=== PATIENT | male | born 1955 | race Caucasian/White ===

== ENCOUNTER → 2025-08-01 12:16 | Outpatient (REF) | payer MEDICARE, SELFPAY ==
[2025-08-01 13:28] LABS: ALT (SGPT) 25 U/L (0-50); AST (SGOT) 20 U/L (17-59); Albumin 4.6 g/dl (3.5-5.0); Alkaline Phosphatase 70 U/L (38-126); Blood Urea Nitrogen 12 mg/dl (9-20); Calcium 9.1 mg/dl (8.4-10.2); Carbon Dioxide 30 mmol/L (22-30); Chloride 102 mmol/L (98-107); Glucose 97 mg/dl (70-99); Potassium 4.4 mmol/L (3.5-5.1); Sodium 138 mmol/L (135-145); Total Protein 7.3 g/dl (6.3-8.2); eGFR > 60.00
[2025-08-01 13:43] LABS: Hematocrit 40.7 % (39.0-52.0); Hemoglobin 14.3 g/dL (13.0-18.0); Mean Corp Hgb Conc. 35.1 g/dL (33.0-37.0); Mean Corpuscular Volume 85.5 fL (80.0-94.0); Nucleated Red Blood Cells % 0 % (-); Platelet Count 183 10^3/uL (130-400); Red Cell Dist. Width 12.5 % (11.5-14.5)
== END ==
LOC: SDSPAT 12:16
PROVIDERS: ATTENDING PHYSICIAN Student in an Organized Health Care Education/Training Program; FAMILY PHYSICIAN Internal Medicine; OTHER PHYSICIAN Internal Medicine Cardiovascular Disease
DX: I20.9 Angina pectoris, unspecified (principal)
CPT/HCPCS: 80053; 85025; 93005

== ENCOUNTER 2025-08-09 08:03 | Day surgery (SDC) | payer MEDICARE, SELFPAY ==
[2025-08-01 13:20] VITALS: BMI 26.9
[2025-08-09] VITALS (16 sets, daily range): BP systolic 117–141; BP diastolic 71–82
[2025-08-09] MEDS: NSS 233 ML IV (08:30)
[2025-08-09 10:14] LABS: ACT-LR - POC 345 Seconds (116-155)
[2025-08-09] MEDS: NSS 1000 IV (10:23)
--- NOTE | 2025-08-09 20:22 | ITS.CL.PN ---
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
Procedure
Procedure Note:
CARDIAC CATHETERIZATION REPORT
Date of Procedure: 08/09/2025
Referring: Dr. Dakotah Sánchez MD
Indication: Atypical angina, positive cardiac stress test, known coronary artery disease
PROCEDURE(S)
1. left heart catheterization
2. coronary angiography
3. iFR D2
4. iFR LAD
ACCESS: 6F right radial artery (closure: radial band)
CATHETERS
1. 6F JR4
2. 6F JL3.5
3. 6F EBU3.75 guide
MODERATE SEDATION: 25 minutes of moderate sedation was utilized. An independent bilingual medical assistant was present to assist with and help manage the patient's level of consciousness and physiologic status.
HEMODYNAMIC DATA
LV 109/11 (EDP 17) mmHg
AO 114/77 (mean 96) mmHg
CORONARY ANGIOGRAPHY
Dominance: Right
LM: Large, normal
LAD: Large vessel giving rise to a small D1, large D2, and wrapping around the apex. There a long segment of 50% stenosis in the mid LAD just after the D2 previously treated with POBA. There is a focal 50% stenosis at the ostium of the D2. There are
otherwise trivial luminal irregularities only. Angiographic appearance is unchanged from 2022 angiography.
LCx: Large vessel giving rise to a small OM1 and large branching OM2. There is a widely patent stent in the OM2 with mild ISR.
RCA: Large vessel giving rise to a large RPDA and large RPL branch. There are mild luminal irregularities only.
iFR of D2
The left main was engaged with an EBU 3.75 guide catheter. Heparin was given to achieve ACT greater than 250. An Omni wire was flushed and zeroed outside the body and then advanced to the left main. The wire introducer was removed and the catheter
flushed with saline, after which pressure of the wire and guide were normalized. The wire was advanced to the D2 and iFR recorded at 0.98. On return to the left main, iFR appropriately normalized to ~1.0, confirming lack of wire drift.
iFR of LAD
The wire was redirected towards the LAD and renormalized. The wire was advanced to the mid LAD and iFR recorded at 0.94. On return to the left main, iFR appropriately normalized to ~1.0, confirming lack of wire drift.
CONCLUSIONS
1. Unchanged coronary artery disease compared to 2022 angiography with nonobstructive mid LAD and ostial diagonal stenoses and widely patent circumflex stent
2. Mildly elevated LV filling pressure and no aortic stenosis
RECOMMENDATIONS
1. Aggressive secondary prevention of coronary artery disease
2. Workup and treatment for atypical chest pain unrelated to epicardial CAD
Copy to: Dr. Daoktah Sánchez MD (credit control manager); Dr. Kole Alves MD (PCP)
Signed: Kaz Orozco MD, PhD
== END 2025-08-09 13:40 | disposition home or self-care (01) ==
LOC: CATH 08:03
PROVIDERS: ATTENDING PHYSICIAN Student in an Organized Health Care Education/Training Program; FAMILY PHYSICIAN Internal Medicine; OTHER PHYSICIAN Internal Medicine Cardiovascular Disease
DX: I25.118 Atherosclerotic heart disease of native coronary artery with other forms of angina pectoris (principal); R94.39 Abnormal result of other cardiovascular function study; Z95.5 Presence of coronary angioplasty implant and graft
CPT/HCPCS: 93799; 85347; 93458; 99152; 99153; C1769; C1894; Q9967